=== PATIENT | female | born 1965 | race Caucasian/White ===

== ENCOUNTER → 2018-11-05 | Outpatient (CLI) | payer OTHER | LOC: FIMAGING 11:50 | PROVIDERS: ATTEND Internal Medicine Pulmonary Disease | DX: R05 Cough (principal); R06.09 Other forms of dyspnea; D72.829 Elevated white blood cell count, unspecified ==

== ENCOUNTER 2018-12-02 05:53 | Inpatient (IN) | payer OTHER ==
[2018-12-02] MEDS ORDERED: ceFAZolin 2 GM/DEXTROSE 100 ML IV ONE (06:06)
[2018-12-02] MEDS ORDERED: LR 1,000 ML IV ONE (06:07)
[2018-12-02] MEDS ORDERED: CEFAZOLIN 2 GM/DEXTROSE/100 ML BAG IV ONE (06:15)
--- NOTE | 2018-12-02 06:51 | PDHPUP ---
History & Physical Update H&P update statement: This history and physical update is based on an assessment of the patient which was completed after admission or registration (within 24 hours), but prior to the surgery/procedure. H&P update: H&P reviewed & patient examined, no change in patient's condition since H&P completed (night sweats and productive cough persist but coughing spells are less frequent) H&P changes: ILD suspected, tissue biopsy sought, not resection of right pulm nodule; plan wedge biopsy/sample from 2 lobes
--- NOTE | 2018-12-02 06:57 | PDANEPAE ---
ANE History of Present Illness diffuse lung infiltrates s/f thoracoscopy and BX ANE Past Medical History - Cardiovascular History Hx Hypertension: No Hx Arrhythmias: No Hx Chest Pain: No Hx Coronary Artery / Peripheral Vascular Disease: No Hx CHF / Valvular Disease: No Hx Palpitations: No - Pulmonary History Hx COPD: No Hx Asthma/Reactive Airway Disease: No Hx Recent Upper Respiratory Infection: No Hx Oxygen in Use at Home: No Hx Sleep Apnea: No Sleep Apnea Screening Result - Last Documented: Negative Pulmonary History Comment: chronic cough for several months. intermittent ASENCIO. "lungs feel tighter" - Neurologic History Hx Cerebrovascular Accident: No Hx Seizures: No Hx Dementia: No - Endocrine History Hx Diabetes: No Hypothyroid: Yes Endocrine History Comment: hashimotos - Renal History Hx Renal Disorders: No - Liver History Hx Hepatic Disorders: No - Neurological & Psychiatric Hx Hx Neurological and Psychiatric Disorders: No - Cancer History Hx Cancer: No - Congenital Disorder History Hx Congenital Disorders: No - GI History Hx Gastrointestinal Disorders: No - Other Health History Other Health History: wears reading glasses. systemic sclerosis. sjogrens. raynauds - Chronic Pain History Chronic Pain: No - Surgical History Prior Surgeries: x3. breast augmentation x2 ANE Review of Systems Review of Systems: - Exercise capacity METS (RN): 4 METS ANE Patient History - Allergies Allergies/Adverse Reactions: levofloxacin [From Levaquin] Allergy (Verified 11/27/18 10:32) HEART PALPATIONS azithromycin [From Zithromax] Adverse Reaction (Unverified 12/02/18 06:56) DOES NOT WORK FOR HER - Home Medications Home Medications: Albuterol [Proventil Inhaler HFA (*)] 1 - 2 puffs IH Q4H PRN 11/26/18 [Last Taken 11/27/18] Aspirin [Aspirin 81mg (*)] 81 mg PO DAILY 11/26/18 [Last Taken 11/27/18] Carboxymethylcellulose 1% [Refresh Celluvisc (*)] 1 drop EACHEYE Q2HRS PRN 11/26 [Last Taken 12/02/18] Cyanocobalamin [Vitamin B12 (*)] 1,500 - 3,000 mcg PO DAILY 11/26/18 [Last Taken 11/27/18] Famotidine [Pepcid 20 MG (*)] 20 mg PO DAILY PRN 11/26/18 [Last Taken 12/01/18] Herbals/Supplements -Info Only 1 ea PO DAILY 11/26/18 [Last Taken 11/27/18] Levothyroxine [Synthroid 112 mcg (*)] 112 mcg PO DAILY06 11/26/18 [Last Taken ] Modafinil [Provigil] 200 mg PO DAILY 11/26/18 [Last Taken 12/01/18] Falls-3 Fatty Acids [Fish Oil 1000 mg (*)] 1,000 mg PO DAILY 11/26/18 [Last Taken 11/27/18] Pilocarpine HCl [Salagen 5mg (*)] 5 mg PO BID 11/26/18 [Last Taken 12/01/18] Pilocarpine HCl [Salagen 5mg (*)] 5 mg PO DAILY@12 PRN 11/26/18 [Last Taken Unknown] Spironolactone [Aldactone 50 MG (RX)] 100 mg PO DAILY 11/26/18 [Last Taken 12/01] amLODIPine BESYLATE [Norvasc 2.5 mg (*)] 2.5 mg PO DAILY 11/26/18 [Last Taken ] buPROPion XL [Wellbutrin Xl] 300 mg PO DAILY 11/26/18 [Last Taken 12/01/18] - NPO status NPO Status: no food or drink >8 hours NPO Since - Liquids (Date): 12/01/18 NPO Since - Liquids (Time): 23:00 NPO Since - Solids (Date): 12/01/18 NPO Since - Solids (Time): 19:00 - Anes Hx Anes Hx: no prior problems - Smoking Hx Smoking Status: Never smoked - Alcohol Use Alcohol Use: Occasionally - Family Anes Hx Family Anes Hx: none Family Hx Anesthesia Complications: none ANE Labs/Vital Signs - Labs - CBC WBC: reviewed and okay - Vital Signs Blood Pressure: 110/76 Heart Rate: 93 Respiratory Rate: 16 O2 Sat (%): 97 Height: 150 cm Weight: 55.8 kg ANE Physical Exam - Airway Neck exam: FROM Mallampati Score: Class 2 Mouth exam: normal dental/mouth exam - Pulmonary Pulmonary: no respiratory distress - Cardiovascular Cardiovascular: regular rate and rhythym - ASA Status ASA Status: II ANE Anesthesia Plan Anesthesia Plan: general endotracheal anesthesia (HELENE, no harshal) Specialized Airway: double lumen tube
[2018-12-02] MEDS ORDERED: MIDAZOLAM 2 MG/2 ML VIAL IVP ONE (06:58)
[2018-12-02] MEDS ORDERED: fentaNYL 100 MCG/2 ML INJ ONE ×4 (07:24→10:03)
[2018-12-02] MEDS ORDERED: REMIFENTANIL HCL 1 MG VIAL ONE (07:24)
[2018-12-02] MEDS ORDERED: LIDOCAINE 2% 100 MG/5 ML SYR ONE (07:28)
[2018-12-02] MEDS ORDERED: PHENYLEPHRINE HCL 100 MCG/ML SYR ONE (07:46)
[2018-12-02] MEDS ORDERED: BUPIVACAINE/EPI 0.25% 10 ML SDV ONE ×2 (07:52→07:53)
[2018-12-02] MEDS ORDERED: HYDROCODONE/APAP 5/325 TAB PO PRN ×3 (08:21→14:00)
[2018-12-02] MEDS ORDERED: ALBUTEROL 3 ML DEYVIAL IH PRN (08:21)
[2018-12-02] MEDS ORDERED: LR 500 ML IV PRN (08:21)
[2018-12-02] MEDS ORDERED: NALOXONE HCL 0.4 MG/ML INJ IVP PRN (08:21)
[2018-12-02] MEDS ORDERED: ACETAMINOPHEN 500 MG TAB PO PRN (08:21)
[2018-12-02] MEDS ORDERED: PHENYLEPHRINE HCL 100 MCG/ML SYR IVP PRN (08:21)
[2018-12-02] MEDS ORDERED: ONDANSETRON 4 MG/2 ML VIAL IVP PRN (08:21)
[2018-12-02] MEDS ORDERED: oxyCODONE IR 5 MG TAB PO PRN (08:21)
[2018-12-02] MEDS ORDERED: DEXAMETHASONE 4 MG/ML VIAL IVP PRN (08:21)
[2018-12-02] MEDS ORDERED: LABETALOL HCL 5 MG/ML 20 ML MDV IVP PRN (08:21)
[2018-12-02] MEDS ORDERED: MEPERIDINE 25 MG/0.5 ML AMP IVP PRN (08:21)
[2018-12-02] MEDS ORDERED: PROMETHAZINE HCL 25 MG/ML INJ IVP PRN (08:21)
[2018-12-02] MEDS ORDERED: KETOROLAC 30 MG/1 ML SDV ONE (08:33)
[2018-12-02] MEDS ORDERED: OXYCODONE/APAP 5/325 TAB PO PRN ×2 (08:40→11:57)
[2018-12-02] MEDS ORDERED: METOCLOPRAMIDE 10 MG TAB PO PRN (08:40)
[2018-12-02] MEDS ORDERED: METOCLOPRAMIDE 10 MG/2 ML VIAL IVP PRN (08:40)
[2018-12-02] MEDS: fentaNYL 100 MCG/2 ML INJ IVP PRN ×5 (08:48→10:06)
[2018-12-02] MEDS ORDERED: HYDROmorphONE/DILAUDID 1 MG/ML INJ IVP STA (11:24)
--- NOTE | 2018-12-02 11:36 | PDMN ---
Medical Necessity Medical [place] [facility] [place] S1082[place] VATS OP: thoracoscopy, lung biopsy L - AUTH # [id number] VICTORIANO FOR CPT CODE 74610 TO BE DONE INPATIENT. 1 DAY LOS
[2018-12-02] MEDS ORDERED: ACETAMINOPHEN 325 MG TAB PO SCH (12:00)
[2018-12-02] MEDS: traMADol 50 MG TAB PO PRN ×2 (12:32→18:15)
[2018-12-02] MEDS ORDERED: ACETAMINOPHEN 325 MG TAB PO PRN (14:00)
[2018-12-02] MEDS ORDERED: CARBOXYMETHYLCELLULOSE 1% 0.4 ML DROPERETTE EACHEYE PRN (14:00)
--- NOTE | 2018-12-02 14:36 | GOP ---
[f rep st] OPERATIVE REPORT DATE OF OPERATION: 12/02/2018 SURGEON: Alejandro Vance DO [employer] OPERATIONS ENGINEER: Adri Mosqueda, PAC ANESTHESIA: General. PREOPERATIVE DIAGNOSIS: Diffuse pulmonary infiltrates with respiratory insufficiency, rule out inter stitial lung disease. POSTOPERATIVE DIAGNOSIS: Diffuse pulmonary infiltrates with respiratory insufficiency, rule out inte rstitial lung disease. PROCEDURE PERFORMED: Thoracoscopic left lingular biopsy. FINDINGS: DESCRIPTION OF PROCEDURE: With a double-lumen endotracheal tube in place, in the lateral decubitus p osition, 3 portals were placed in the chest in the standard fashion, avoiding breast implants. A por tion of the lingula was excised with a stapler. No air leak was identified. A single chest tube was placed. Intercostal spaces were infiltrated with Marcaine with epinephrine. Wounds were closed in standard fashion. Patient was extubated in the operating room and returned to recovery room in stabl e condition. ANESTHESIA: Jamison Daley MD. /[id number]/MODL
[2018-12-02] MEDS: ceFAZolin 2 GM/DEXTROSE 100 ML IV SCH ×2 (14:54→22:04)
[2018-12-02] MEDS: KETOROLAC 30 MG/1 ML SDV IVP SCH ×2 (14:54→21:14)
[2018-12-02] MEDS: ACETAMINOPHEN 325 MG TAB PO SCH ×2 (17:12→21:15)
[2018-12-02] MEDS: PILOCARPINE HCL 5 MG TAB PO SCH (21:15)
[2018-12-02] MEDS: HEPARIN 5,000 UNIT/0.5 ML INJ SC SCH (22:04)
[2018-12-02] MEDS ORDERED: diphenhydrAMINE 25 MG CAP PO PRN (22:44)
[2018-12-03] MEDS: KETOROLAC 30 MG/1 ML SDV IVP SCH (03:39)
[2018-12-03] MEDS ORDERED: LEVOTHYROXINE 112 MCG TAB PO SCH (06:00)
[2018-12-03] MEDS: ACETAMINOPHEN 325 MG TAB PO SCH ×2 (07:09→11:49)
--- NOTE | 2018-12-03 08:00 | SOAPPROG ---
SOAP Progress Note Assessment/Plan: Assessment: POD#1 LVATS lingular biopsy Diffuse pulmonary infiltrates w chronic cough and dyspnea - ILD suspected. Lung biopsy taken for definitive dx. Await path. Lung well expanded postop without active air leak. Pain control challenging d/t chest tube with minimal drainage. 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 Plan: Remove chest tube. Dispo - Home without services later today if pain controlled and light activity well tolerated. 12/03/18 07:58 Subjective: Hanging in there. Tube pain intermittently debilitating. Objective: Vital Signs Temp Pulse Resp BP Pulse Ox 37.1 C 89 16 94/53 L 91 L 12/03/18 03:36 12/03/18 03:36 12/03/18 03:36 12/03/18 03:36 12/03/18 03:36 Microbiology 12/02/18 08:20 Mycobacterial Smear (DANAE) - Final Lung - Tissue 12/02/18 08:20 Gram Stain - Final Lung - Tissue Laboratory Results 12/03/18 03:36 12/03/18 03:36 12/02/18 12/03/18 12/04/18 05:59 05:59 05:59 Intake Total 1800 Output Total 1135 Balance 665 Afeb. VSS. Off O2. CTOP minimal. CXR -> tiny left apical lucency, no undrained effusion Cr stable. Physical Exam - Physical Exam General Appearance: alert, no apparent distress Respiratory: decreased breath sounds (left sided), other (Left port sites CDI. No subq air. Vahid to pleurovac, serosang drainage, +tidal, ?small air leak with cough) Cardiac/Chest: regular rate, rhythm Abdomen: non-tender, soft Skin: warm/dry Extremities: other (no visible edema) ICD10 Worksheet Patient Problems: Problems Problem Status Onset Nodule of lower lobe of right lung Acute s/p LVATS wedge resection Acute ~12/02/18 Sjogren's disease Chronic
[2018-12-03] MEDS: PILOCARPINE HCL 5 MG TAB PO SCH (08:29)
[2018-12-03] MEDS: HEPARIN 5,000 UNIT/0.5 ML INJ SC SCH (08:32)
[2018-12-03] MEDS ORDERED: buPROPion XL 150 MG TAB PO SCH (09:00)
[2018-12-03] MEDS ORDERED: ASPIRIN 81 MG CHEWABLE TAB PO SCH (09:00)
[2018-12-03] MEDS: traMADol 50 MG TAB PO PRN (09:19)
[2018-12-03] MEDS ORDERED: PILOCARPINE HCL 5 MG TAB PO PRN (12:00)
[2018-12-03] MEDS ORDERED: ALBUTEROL 60 PUFFS/8 GM MDI IH PRN (12:00)
[2018-12-03 12:03] VITALS: BP 105/56
--- NOTE | 2018-12-03 14:13 | PDDCSUM ---
Discharge Summary Discharge Summary: DATE OF ADMISSION: 12/02/18 DATE OF DISCHARGE: 12/03/18 DISPOSITION: Home, self-care PRINCIPAL ADMISSION DIAGNOSIS: Interstitial lung disease suspected PRINCIPAL DISCHARGE DIAGNOSIS: Status post thoracoscopic lung biopsy HISTORY OF PRESENT ILLNESS: 52 yo female with multiple autoimmune disorders and a chronic cough with fatigue , intermittent fevers, and ASENCIO x 3 mo seen to have diffuse pulmonary infiltrates by CT chest and admitted for elective lung biopsy. PERTINENT PAST MEDICAL HISTORY: Systemic sclerosis with Raynauds syndrome, Sjogrens syndrome and Hashimotos thyroiditis, GERD, cystic acne, depression MEDICATIONS ON ADMISSION: Pepcid 20 mg daily, Proventil MDI 1-2 puffs q4h prn, Aldactone 100 mg daily for facial acne, herbal supplement daily, Vit B12 1.500-3,000 cg daily, Wellbutrin XL 300 mg daily, Provigil 200 mg daily, Norvasc 2.5 mg daily for Raynaud's, Synthroid 112 mcg daily, ASA 81 mg daily, Refresh eye gtts prn, Salagen 5 mg BID and 5 mg @12 noon prn ALLERGIES/SENSITIVITIES: Levaquin causing palpitations CONSULTANTS: none PROCEDURES/IMAGIN/6 (Rajiv): Left video assisted thoracoscopic surgery with lingular wedge resection. ABBREVIATED HOSPITAL COURSE BY ACTIVE PROBLEM LIST: Chronic respiratory insufficiency with imaging concerning for ILD - Lung biopsy taken for definitive dx. Await path. Preliminary culture results negative for infectious etiology. Postop course stable. Lung well expanded without active air leak. Pain adequately controlled once chest tube out. DISCHARGE CLINICAL INFORMATION: Left chest port sites CDI, sutured, +Dermabond. HR 80s-90s. SBP 100s. SpO2 94% RA. Wt 1.4 kg below admission at 55.8 kilos. Hgb 12, HCT 38, Plt 320, Na 133, K 4.7, Cr 1.2 DISCHARGE MEDICATIONS: As on admission with the following adjustments: Hold Spironolactone and Norvasc for SBP < 100. NEW prescriptions: 1. Tramadol 50 mg q6h prn incisional pain not controlled by Tylenol FOLLOW UP APPOINTMENTS: 1. CV surgery: with Dr Vance at [facility] on 12/15 at 9:30 am. 2. Pulmonology: with Dr Pinto as directed. FOLLOW UP TESTING: CXR prior to surgical appointment.
--- NOTE | 2018-12-03 15:16 | ASDISCHSUM ---
Discharge Information Plan Status:Home with No Needs Medically Cleared to Leave:12/02/2018 Discharge Date:12/02/2018 CM D/C Disposition:Home, Routine, Self-Care ADT D/C Disposition:Home, Routine, Self-Care Projected Discharge Date:12/02/2018 Transportation at D/C:Family Discharge Delay Reason: Follow-Up Date:12/02/2018 Discharge Slot: Final Diagnosis: Placement Information Patient Contact Information Contact Name:BRANNON Relationship: Address:[address] [place] [address] City:[place] Alternate Phone: State/Zip Code:[place] [address] Email: Financial Information Financial Class:HMO and PPO Plans Primary Plan Desc:[facility] Primary Plan Number:[id number] Secondary Plan Desc: Secondary Plan Number: Assessment Information LACE LACE Length of stay for Answers: 1 day current admission Acuity / Level of Answers: Yes Care: Did the patient have an inpatient admission? Comorbidities - select Answers: Other Notes: Hypothyroid, sjogren's, GE all that apply RD, # of Emergency department Answers: 0 visits in the last 6 months Social determinants Answers: Mental health diagnosis (anxiety, depression, pers onality disorders, etc.) Score: 8 Date Signed: 12/03/2018 03:14 PM Electronically Signed By:Elyssa Benavidez RN Intervention Information
[2018-12-04] MEDS ORDERED: CYANO/VITAMIN B12 1000 MCG TAB PO SCH (08:00)
[2018-12-04] MEDS ORDERED: OMEGA-3 FATTY ACIDS 1,000 MG CAP PO SCH (09:00)
--- NOTE | 2018-12-10 12:16 | GPROG ---
[f rep st] PROGRESS NOTE POST ANESTHESIA NOTE DATE OF SERVICE: 12/02/2018 The patient was seen in the recovery room on 12/02/2018, at about 10 in the morning, at which point s he was doing very well on oxygen by nasal cannula, not having significant pain or respiratory distres s. Her hemodynamics were stable. She was not having nausea, vomiting or other significant anestheti c issues. /[id number]/MODL
== END 2018-12-03 16:00 | disposition home or self-care (01) | DRG 168 ==
LOC: F2N 05:53 → F2W 10:54
PROVIDERS: ADMIT Thoracic Surgery (Cardiothoracic Vascular Surgery); ATTEND Thoracic Surgery (Cardiothoracic Vascular Surgery)
PROC: 0BBH4ZX Excision of Lung Lingula, Percutaneous Endoscopic Approach, Diagnostic (ICD-10-PCS; principal; 2018-12-02 07:15)
DX: J84.9 Interstitial pulmonary disease, unspecified (principal); M34.9 Systemic sclerosis, unspecified; M35.00 Sjogren syndrome, unspecified; I73.00 Raynaud's syndrome without gangrene; K21.9 Gastro-esophageal reflux disease without esophagitis; E06.3 Autoimmune thyroiditis; F32.9 Major depressive disorder, single episode, unspecified; L70.0 Acne vulgaris; R06.89 Other abnormalities of breathing
CPT/HCPCS: 88323-90; 88342; J0690; J1170; J1644; J1885; J2001; J2250; J2270; J2370; J2765; J3010

== ENCOUNTER → 2018-12-15 | Outpatient (CLI) | payer OTHER | LOC: FIMAGING 10:52 | PROVIDERS: ATTEND Thoracic Surgery (Cardiothoracic Vascular Surgery) | DX: R91.8 Other nonspecific abnormal finding of lung field (principal); Z98.890 Other specified postprocedural states ==